=== PATIENT | female | born 1950 | race Caucasian/White ===

== ENCOUNTER 2016-11-05 12:04 | Emergency (ER) | payer BC ==
--- NOTE | 2016-11-05 12:12 | ER Document Report ---
ED Medical Screen (RME) - General Stated Complaint: CAT BITE Notes: She is a 66-year-old female who presents emergency Department complaining of a cat bite that happened on November 02. Patient was evaluated on the at [facility] and started on Rocephin 1 g IM and Keflex. She is in today complaining of pain and swelling that has been worsening since the bite. Bit by her sister's cat who is vaccinated evidence of cellulitis, very tender I have greeted and performed a rapid initial assessment of this patient. A comprehensive ED assessment and evaluation of the patient, analysis of test results and completion of the medical decision making process will be conducted by additional ED providers. TRAVEL OUTSIDE OF THE [place] IN LAST 30 DAYS: No - Related Data Allergies/Adverse Reactions: azithromycin [From Zithromax] Adverse Reaction (Verified 11/05/16 12:08) levofloxacin [From Levaquin] Adverse Reaction (Verified 11/05/16 12:07) Past Medical History - Past Medical History Cardiac Medical History: Reports: Hx Hypercholesterolemia, Hx Hypertension Endocrine Medical History: Reports: Hx Diabetes Mellitus Type 2 Psychiatric Medical History: Reports: Hx Depression - put on celexa for mother' s , weaning off now Past Surgical History: Reports: Hx Cardiac Surgery - PACEMAKER, Hx Orthopedic Surgery - KNEE - Immunizations Hx Diphtheria, Pertussis, Tetanus Vaccination: Yes Physical Exam - Vital signs Vitals: Temp Pulse Resp BP Pulse Ox 97.9 F 74 18 160/84 H 97 11/05/16 12:07 11/05/16 12:07 11/05/16 12:07 11/05/16 12:07 11/05/16 12:07 Course - Vital Signs Vital signs: Temp Pulse Resp BP Pulse Ox 97.9 F 74 18 160/84 H 97 11/05/16 12:07 11/05/16 12:07 11/05/16 12:07 11/05/16 12:07 11/05/16 12:07
--- NOTE | 2016-11-05 12:33 | ER Document Report ---
ED Animal Bite - General Chief Complaint: Cat Bite Stated Complaint: CAT BITE Mode of Arrival: Ambulatory Information source: Patient TRAVEL OUTSIDE OF THE [place] IN LAST 30 DAYS: No - HPI Location of injury: RUE Severity of injury: Bitten Onset: Other - 3 DAYS AGO Where did incident occur: PATIENT'S HOME Quality of pain: Burning, Pressure Severity: Mild Context of attack: "Provoked" attack Summary of what happened: DOMESTICATED INDOOR CAT, HEALTHY, BIT PATIENT WHILE PLAYING Type of animal: Cat Appearance of animal: Appeared well Animal's immunizations: UTD Animal captured or known: Yes Notes: INITIALLY SEEN ON DATE OF INCIDENT BY [facility]. GIVE ROCEPHIN & PRESCRIBED KEFLEX. OVERNIGHT WOUND BECAME MORE SWOLLEN & PAINFUL AND DRAINED PURULENCE THIS A.M. - Related Data Allergies/Adverse Reactions: azithromycin [From Zithromax] Adverse Reaction (Verified 11/05/16 12:08) levofloxacin [From Levaquin] Adverse Reaction (Verified 11/05/16 12:07) Past Medical History - General Information source: Patient - Social History Smoking Status: Current Every Day Smoker Chew tobacco use (# tins/day): No Frequency of alcohol use: None Drug Abuse: None Lives with: Spouse/Significant other Family History: Reviewed & Not Pertinent Patient has suicidal ideation: No Patient has homicidal ideation: No - Past Medical History Cardiac Medical History: Reports: Hx Hypercholesterolemia, Hx Hypertension Pulmonary Medical History: Reports: None Neurological Medical History: Reports: None Endocrine Medical History: Reports: Hx Diabetes Mellitus Type 2 Renal/ Medical History: Reports: None. Denies: Hx Peritoneal Dialysis Malignancy Medical History: Reports: None GI Medical History: Reports: None Musculoskeltal Medical History: Reports None Psychiatric Medical History: Reports: Hx Depression - put on celexa for mother' s , weaning off now Past Surgical History: Reports: Hx Cardiac Surgery - PACEMAKER, Hx Orthopedic Surgery - KNEE - Immunizations Hx Diphtheria, Pertussis, Tetanus Vaccination: Yes Review of Systems - Review of Systems Constitutional: No symptoms reported EENT: No symptoms reported Cardiovascular: No symptoms reported Respiratory: No symptoms reported Gastrointestinal: No symptoms reported Female Genitourinary: Post menopausal Musculoskeletal: No symptoms reported Skin: See HPI Neurological/Psychological: No symptoms reported Physical Exam - Vital signs Vitals: Temp Pulse Resp BP Pulse Ox 97.9 F 74 18 160/84 H 97 11/05/16 12:07 11/05/16 12:07 11/05/16 12:07 11/05/16 12:07 11/05/16 12:07 Interpretation: Hypertensive. No: Tachycardic, Tachypneic, Febrile - General General appearance: Appears well, Alert In distress: None - HEENT Head: Normocephalic Eyes: Normal Conjunctiva: Normal Ears: Normal Nasal: Normal Mouth/Lips: Normal Mucous membranes: Normal - Respiratory Respiratory status: No respiratory distress - Cardiovascular Rhythm: Regular - Abdominal Inspection: Normal Distension: No distension - Back Back: Normal - Extremities General upper extremity: No: Normal inspection - R. FOREARM (SEE BELOW) Forearm: Other - 2 PUNCTURE WOUNDS OVER EXTENSOR MUSCLE MASS, WITH SURROUNDING EDEMA, WARMTH, TENDERNESS. WOUNDS SEALED W/ DRY ESCHAR. - Neurological Neuro grossly intact: Yes Cognition: Normal Orientation: AAOx4 - Psychological Associated symptoms: Normal affect, Normal mood - Skin Skin Temperature: Warm Skin Moisture: Dry Skin Color: Normal Skin Turgor: Elastic Skin irregularity: other - SEE ABOVE. Course - Vital Signs Vital signs: Temp Pulse Resp BP Pulse Ox 97.9 F 74 18 160/84 H 97 11/05/16 12:07 11/05/16 12:07 11/05/16 12:07 11/05/16 12:07 11/05/16 12:07 Procedures - Incision and Drainage Right Arm Time completed: 13:55 Type: Simple Anesthetic type: 2% Lidocaine mL's of anesthetic: 2 Blade size: 11 I&D procedure: Betadine prep applied, Iodoform packing placed Incision Method: Incision made by scalpel Amount/type of drainage: 1 cc BLOODY PURULENT Notes: 11/05/16 14:00 BOTH PUNCTURE WOUNDS I&D'd, IRRIGATED & PACKED LOOSELY. WOUNDS SPREAD & PROBED BLUNTLY TO BREAK UP LOCULATIONS. Discharge - Discharge Clinical Impression: Infected cat bite of forearm Qualifiers: Encounter type: initial encounter Laterality: right Qualified Code(s): S51.851A - Open bite of right forearm, initial encounter; L08.9 - Local infection of the skin and subcutaneous tissue, unspecified; W55.01XA - Bitten by cat, initial encounter Diabetes Qualifiers: Diabetes mellitus type: type 2 Diabetes mellitus complication status: without complication Diabetes mellitus jail insulin use: without oysterman use Qualified Code(s): E11.9 - Type 2 diabetes mellitus without complications Condition: Stable Disposition: HOME, SELF-CARE Instructions: Wound Infection ([facility]), Post Incision and Drainage, Elevation & Warmth ([facility]), IV Antibiotics ([facility]), Augmentin ([facility]), Epsom Salt Soaks ([facility]) Additional Instructions: MEDS DIRECTED. KEEP ARM ELEVATED MUCH POSSIBLE. TOMORROW, REMOVE BANDAGE AND PACKING AND BEGIN SOAKING WOUNDS IN WARM SALT WATER 3 OR 4 TIMES A DAY. AFTER SOAKING FOR 20 MINUTES, DRY WOUNDS GENTLY AND REPLACE BANDAGE WITH A NEW ONE. CONTINUE THIS UNTIL WOUNDS ARE HEALED. RETURN TO E.R. OR FOLLOW UP WITH YOUR PRIMARY CARE PROVIDER IF PROBLEMS. Prescriptions: Amox Tr/Potassium Clavulanate [Augmentin 500-125 Tablet] 1 tab PO Q8 #30 tablet
[2016-11-05] MEDS ORDERED: ONDANSETRON 4 MG TAB.RAPDIS PO ONE (12:43)
[2016-11-05] MEDS ORDERED: AMPICILLIN SOD/SULBACTAM 3 GM VIAL IV ONE (12:43)
[2016-11-05] MEDS ORDERED: LIDOCAINE 2% INJ (20 MG/ML) 20 ML MDV INJ ONE (12:43)
[2016-11-05] MEDS ORDERED: HYDROMORPHONE HCL INJ/PF 2 MG/ML AMPULE IV ONE (12:43)
[2016-11-05 15:38] VITALS: BP 136/78
== END 2016-11-05 15:30 | disposition home or self-care (01) ==
LOC: ER 12:04
PROC: 0H9DXZZ Drainage of Right Lower Arm Skin, External Approach (ICD-10-PCS; principal; 2016-11-05)
DX: S51.851A Open bite of right forearm, initial encounter (principal); E11.9 Type 2 diabetes mellitus without complications; W55.01XA Bitten by cat, initial encounter
CPT/HCPCS: 99283; 96375; 96365; 87070; 87205; 87075; 10060; J3490; S0119; J0295; J1170; 87077; A6266

== ENCOUNTER → 2016-12-01 | Outpatient (CLI) | payer BC ==
--- NOTE | 2016-12-05 11:12 | CAROTID DOPPLER PRO FEE REPORT ---
CAROTID DUPLEX DOPPLER REPORT [id number] ROOM#: DATE OF STUDY: 12/01/2016 DATE OF : 1950 REFERRING MD: DOMINIQUE PAEZ M.D. ORDER NO: [id number] TECHNOLOGIST: Norris Reyes INDICATION: TIA; occipital neuralgia. STUDY: The color carotid duplex scan was performed with real time images and real time Doppler velocity measurements. Real time images indicated moderate bilateral heterogenous plaque formation, worse to the right than the left. Doppler velocity measurements were as follows: MEASUREMENT: RIGHT LEFT CCA PSV (prox/mid) 89 cm/sec 101 cm/sec CCA PSV (distal) 97 cm/sec 85 cm/sec CCA EDV (prox/mid) 26 cm/sec 27 cm/sec CCA EDV (distal) 28 cm/sec 29 cm/sec ICA PSV (proximal) 129 cm/sec 108 cm/sec ICA PSV (distal) 115 cm/sec 159 cm/sec ICA EDV (proximal) 47 cm/sec 32 cm/sec ICA EDV (distal) 44 cm/sec 52 cm/sec ECA 131 cm/sec 112 cm/sec ICA/CCA RATIO: 1.3 on the right and 1.9 on the left. Vertebrals are patent. Flow is cephalad. FINAL IMPRESSION: MODERATE BILATERAL PLAQUE FORMATION, LESS THAN 50% STENOTIC FLOW. INTERPRETING PHYSICIAN: DOMINIQUE PAEZ M.D. /: BRAULIO TT: 1103 ID: [id number] /: [id number] TD: [id number] JOB: [id number] cc:DOMINIQUE PAEZ M.D. >
== END ==
LOC: SP 09:45
PROVIDERS: ATTEND Specialist
DX: R56.9 Unspecified convulsions (principal); G45.9 Transient cerebral ischemic attack, unspecified; M54.81 Occipital neuralgia
CPT/HCPCS: 93880

== ENCOUNTER 2017-03-16 19:17 | Emergency (ER) | payer MEDICARE, BC ==
[2017-03-16] MEDS ORDERED: ONDANSETRON 4 MG TAB.RAPDIS PO ONE (19:57)
--- NOTE | 2017-03-16 19:58 | ER Document Report ---
ED Medical Screen (RME) - General Chief Complaint: Nausea/Vomiting Stated Complaint: VOMITING Time Seen by Provider: 03/16/17 19:57 Notes: Patient states she was in her normal state of health until approximately 3 PM yesterday when suddenly she became nauseous and has had intractable vomiting since then. She states she has some abdominal generalized discomfort but no focal pain. She states urine and bowel movements have been normal. She states she has had no surgeries on her belly since she was 18 years old when she had an appendectomy. TRAVEL OUTSIDE OF THE [place] IN LAST 30 DAYS: No - Related Data Allergies/Adverse Reactions: azithromycin [From Zithromax] Adverse Reaction (Verified 11/05/16 12:08) levofloxacin [From Levaquin] Adverse Reaction (Verified 11/05/16 12:07) Past Medical History - Social History Chew tobacco use (# tins/day): No Frequency of alcohol use: None Drug Abuse: None - Past Medical History Cardiac Medical History: Reports: Hx Hypercholesterolemia, Hx Hypertension Endocrine Medical History: Reports: Hx Diabetes Mellitus Type 2 Renal/ Medical History: Denies: Hx Peritoneal Dialysis GI Medical History: Reports: Hx Gastroesophageal Reflux Disease Psychiatric Medical History: Reports: Hx Depression - put on celexa for mother' s , weaning off now Past Surgical History: Reports: Hx Appendectomy, Hx Cardiac Surgery - PACEMAKER , Hx Orthopedic Surgery - KNEE - Immunizations Hx Diphtheria, Pertussis, Tetanus Vaccination: Yes Physical Exam - Vital signs Vitals: Temp Pulse Resp BP Pulse Ox 98.8 F 82 18 137/87 H 96 03/16/17 19:42 03/16/17 19:42 03/16/17 19:42 03/16/17 19:42 03/16/17 19:42 Course - Vital Signs Vital signs: Temp Pulse Resp BP Pulse Ox 98.8 F 82 18 137/87 H 96 03/16/17 19:42 03/16/17 19:42 03/16/17 19:42 03/16/17 19:42 03/16/17 19:42
[2017-03-16 20:20] LABS: ABSOLUTE BASOPHILS # (AUTO) 0.1 10^3/uL (0.0-0.2); ABSOLUTE EOSINOPHILS # (AUTO) 0.1 10^3/uL (0.0-0.6); ABSOLUTE LYMPHOCYTES (AUTO) 2.5 10^3/uL (0.5-4.7); ABSOLUTE MONOCYTES (AUTO) 0.9 10^3/uL (0.1-1.4); ABSOLUTE NEUT (AUTO) 7.1 10^3/uL (1.7-8.2); BASOPHILS % (AUTO) 0.9 % (0-2); HEMATOCRIT 48.4 % (36.0-47.0); HEMOGLOBIN 16.2 g/dL (12.0-15.5); HGB HCT DIFFERENCE 0.2; LYMPHOCYTES % (AUTO) 23.4 % (13-45); MEAN CORPUSCULAR HEMOGLOBIN 32.2 pg (27.0-33.4); MEAN CORPUSCULAR HGB CONC 33.5 g/dL (32.0-36.0); MEAN CORPUSCULAR VOLUME 96 fl (80-97); MONOCYTES % (AUTO) 8.5 % (3-13); RED BLOOD COUNT 5.03 10^6/uL (3.72-5.28); RED CELL DISTRIBUTION WIDTH 14.1 % (11.5-14.0); SEGMENTED NEUTROPHILS % (AUTO) 66.2 % (42-78); WHITE BLOOD COUNT 10.7 10^3/uL (4.0-10.5)
[2017-03-16 20:27] LABS: AMORPHOUS SEDIMENT,URINE TRACE /HPF; APPEARANCE,URINE CLOUDY; BILIRUBIN,URINE NEGATIVE (NEGATIVE); GLUCOSE, URINE NEGATIVE (NEGATIVE); KETONES,URINE NEGATIVE (NEGATIVE); LEUKOCYTE ESTERASE,URINE TRACE (NEGATIVE); NITRITE,URINE NEGATIVE (NEGATIVE); PROTEIN,URINE 100 mg/dL (NEGATIVE); URINE SPECIFIC GRAVITY 1.021; UROBILINOGEN,URINE NEGATIVE mg/dL (<2.0)
[2017-03-16 20:37] LABS: ALANINE AMINOTRANSFERASE 39 U/L (9-52); ALBUMIN 4.8 g/dL (3.5-5.0); ALKALINE PHOSPHATASE 86 U/L (38-126); ANION GAP 12 (5-19); ASPARTATE AMINO TRANSFERASE 21 U/L (14-36); BILIRUBIN,DIRECT 0.3 mg/dL (0.0-0.4); BLOOD UREA NITROGEN 18 mg/dL (7-20); CALCIUM 9.7 mg/dL (8.4-10.2); CARBON DIOXIDE 33 mmol/L (22-30); CHLORIDE 97 mmol/L (98-107); CREATININE RESULT 0.72 mg/dL (0.52-1.25); GLUCOSE 215 mg/dL (75-110); LIPASE 239.1 U/L (23-300); POTASSIUM 3.6 mmol/L (3.6-5.0); SODIUM 142.1 mmol/L (137-145)
[2017-03-16] MEDS ORDERED: ONDANSETRON HCL INJ/PF 4 MG/2 ML SDV IV ONE (21:24)
[2017-03-16] MEDS ORDERED: NORMAL SALINE 1000 ML 1,000 ML IV PRN (21:24)
--- NOTE | 2017-03-16 21:36 | ER Document Report ---
ED GI/ - General Chief Complaint: Nausea/Vomiting Stated Complaint: VOMITING Time Seen by Provider: 03/16/17 19:57 Mode of Arrival: Ambulatory Information source: Patient Notes: 67-year-old female presents to ED for nausea and vomiting since yesterday afternoon around 3 PM. She states she has vomited too many times to count. She states now her stomach is a little sore from all the vomiting. Denies any acute abdominal pain except for the soreness. States she is urinating and having bowel movements normally. States only surgery she has had on her abdomen was an appendectomy when she was about 18 years old. TRAVEL OUTSIDE OF THE [place] IN LAST 30 DAYS: No - HPI Patient complains to provider of: Abdominal pain - Soreness from vomiting, Vomiting Onset: Yesterday Timing/Duration: Intermittent Quality of pain: Other - Soreness from vomiting Severity at maximum: Moderate Severity in ED: Moderate Pain Level: 2 Location: Other - Generalized abdominal soreness from vomiting Vaginal bleeding (Compared to normal period): None Menstrual period history: Post-menopausal Associated symptoms: Nausea, Vomiting Exacerbated by: Denies Relieved by: Denies Similar symptoms previously: Yes Recently seen / treated by doctor: No - Related Data Allergies/Adverse Reactions: azithromycin [From Zithromax] Adverse Reaction (Verified 11/05/16 12:08) levofloxacin [From Levaquin] Adverse Reaction (Verified 11/05/16 12:07) Past Medical History - General Information source: Patient - Social History Smoking Status: Current Every Day Smoker Chew tobacco use (# tins/day): No Frequency of alcohol use: None Drug Abuse: None Lives with: Family Family History: Reviewed & Not Pertinent Patient has suicidal ideation: No Patient has homicidal ideation: No - Past Medical History Cardiac Medical History: Reports: Hx Hypercholesterolemia, Other - long qt Pulmonary Medical History: Reports: Hx Pneumonia EENT Medical History: Reports: None Endocrine Medical History: Reports: Hx Diabetes Mellitus Type 2 Renal/ Medical History: Reports: None GI Medical History: Reports: Hx Gastroesophageal Reflux Disease, Hx Colonoscopy Musculoskeltal Medical History: Reports Hx Musculoskeletal Trauma Skin Medical History: Reports None Psychiatric Medical History: Reports: Hx Depression - put on celexa for mother' s , weaning off now Traumatic Medical History: Reports: None Infectious Medical History: Reports: None Past Surgical History: Reports: Hx Appendectomy, Hx Cardiac Surgery - PACEMAKER , Hx Oral Surgery - wisdom teeth, Hx Orthopedic Surgery - KNEE - Immunizations Immunizations up to date: Yes Hx Diphtheria, Pertussis, Tetanus Vaccination: Yes Hx Pneumococcal Vaccination: 10/19/14 Review of Systems - Review of Systems Constitutional: No symptoms reported EENT: No symptoms reported Cardiovascular: No symptoms reported Respiratory: No symptoms reported Gastrointestinal: Nausea, Vomiting Genitourinary: No symptoms reported Female Genitourinary: No symptoms reported Musculoskeletal: No symptoms reported Skin: No symptoms reported Hematologic/Lymphatic: No symptoms reported Neurological/Psychological: No symptoms reported -: Yes All other systems reviewed and negative Physical Exam - Vital signs Vitals: Temp Pulse Resp BP Pulse Ox 98.8 F 82 18 137/87 H 96 03/16/17 19:42 03/16/17 19:42 03/16/17 19:42 03/16/17 19:42 03/16/17 19:42 Interpretation: Normal - General General appearance: Appears well, Alert - HEENT Head: Normocephalic, Atraumatic Eyes: Normal Pupils: PERRL - Respiratory Respiratory status: No respiratory distress Chest status: Nontender Breath sounds: Normal Chest palpation: Normal - Cardiovascular Rhythm: Regular Heart sounds: Normal auscultation Murmur: No - Abdominal Inspection: Normal Distension: No distension Bowel sounds: Normal Tenderness: Nontender Organomegaly: No organomegaly - Back Back: Normal, Nontender - Extremities General upper extremity: Normal inspection, Nontender, Normal color, Normal ROM , Normal temperature General lower extremity: Normal inspection, Nontender, Normal color, Normal ROM , Normal temperature, Normal weight bearing. No: Miguelangel's sign - Neurological Neuro grossly intact: Yes Cognition: Normal Orientation: AAOx4 [place] Coma Scale Eye Opening: Spontaneous [place] Coma Scale Verbal: Oriented [place] Coma Scale Motor: Obeys Commands [place] Coma Scale Total: 15 Speech: Normal Motor strength normal: LUE, RUE, LLE, RLE Sensory: Normal - Psychological Associated symptoms: Normal affect, Normal mood - Skin Skin Temperature: Warm Skin Moisture: Dry Skin Color: Normal Course - Re-evaluation Re-evalutation: 03/17/17 05:49 Patient was treated with IV fluids and Zofran. She then stated that she was having pain as if hungry but was no longer nauseated. Patient was given chely crackers saltine crackers and juice. She states she felt much better and was ready to go home. Patient was discharged home with prescription for Zofran. - Vital Signs Vital signs: Temp Pulse Resp BP Pulse Ox 98.2 F 76 18 128/77 H 98 03/17/17 01:02 03/17/17 01:02 03/17/17 01:02 03/17/17 01:02 03/17/17 01:02 - Laboratory Result Diagrams: 03/16/17 20:03 03/16/17 20:03 Laboratory results interpreted by me: 03/16/17 03/16/17 03/16/17 20:03 20:03 20:03 WBC 10.7 H Hgb 16.2 H Hct 48.4 H RDW 14.1 H Chloride 97 L Carbon Dioxide 33 H Glucose 215 H Urine Protein 100 H Ur Leukocyte Esterase TRACE H Discharge - Discharge Clinical Impression: Nausea & vomiting Qualifiers: Vomiting type: unspecified Vomiting Intractability: non-intractable Qualified Code(s): R11.2 - Nausea with vomiting, unspecified Condition: Stable Disposition: HOME, SELF-CARE Instructions: Family Physicians / Practices Additional Instructions: VOMITING: Vomiting (or nausea without vomiting) can be caused by many other different problems. It can mean that something's wrong with the stomach, such as ulcers or inflammation or the intestinal tract, such as appendicitis. But it can also be a symptom of a problem that has nothing to do with the stomach or intestines. Vomiting is common with severe headaches, earaches, tonsillitis, and kidney infections, etc. We see it with pneumonia or heart attacks. Drugs can cause nausea and vomiting. Many abdominal problems cause vomiting; for example, gallstones, kidney stones, pancreatitis, and intestinal obstruction ( blocked bowels). In most cases, curing the vomiting depends on fixing the problem that caused it. For temporary relief, we may use an anti-nausea medicine. For home use, we can prescribe suppositories, chewable pills, pills that dissolve in the mouth, or liquid anti-nausea drugs. If the vomiting seems to be caused by a problem in the stomach, acid-suppressing drugs may be prescribed as well. It's important to avoid dehydration. Sip small amounts of clear liquids ( soft drinks, tea, broth, etc) . Try to take fluids frequently even if you are vomiting to prevent dehydration. Take increasing amounts of fluid and when liquids are being consumed successfully, advance to small amounts of bland food (toast, soups, mashed potatoes, etc.) until you are able to resume a regular diet. Avoid aspirin, tobacco, and alcohol. If the vomiting worsens, if the problem that's making you vomit worsens, or if there's evidence of bleeding in the stomach (such as black, tarry stool, or bloody or black vomit), you should return immediately. Also, return if abdominal pain worsens or becomes localized to one area or you develop high fever. Call your doctor if you aren't improved in 24 hours. VIRAL SYNDROME: The physician has diagnosed a viral infection. Viruses not only cause "colds," but can cause many different symptoms including generalized aching, fever, headache, cough, diarrhea, nausea, vomiting, and fatigue. The treatment, for the most part, is simply relief of symptoms. This means that antibiotics are usually not given. Rest, fluids, pain medications and, occasionally, medication for the specific symptoms that are most bothersome will be prescribed. Use good handwashing to avoid passing the virus to others. Shared toys should be cleaned with disinfectant. Clean the toilets, sinks, and counter surfaces in bathrooms. Launder clothing in hot water. Contact the physician if you develop any new or unusual symptoms such as severe headache, stiff neck, high fever, chest pain, productive cough, or shortness of breath. You should be rechecked if you don't see marked improvement within seven to 10 days. INTRAVENOUS (I V) FLUIDS: As part of your care today, you received intravenous (IV) fluids. IV fluids are administered to patients who are dehydrated or to those who have certain chemical (electrolyte) abnormalities that need correcting. ANTINAUSEA MEDICATION: You have been given a medication to suppress nausea and vomiting. This type of medication can be given as a shot, pill, or suppository. It will usually last for many hours. Pills and shots usually last six to eight hours. For the typical illness, only one or two doses of the medication may be necessary. Mild lightheadedness may occur. This type of medicine can cause drowsiness. Do not drive or operate dangerous machinery while under its influence. Do not mix with alcohol. See your doctor at once if you have muscle spasms or tightness, or uncontrollable motions (particularly of the neck, mouth, or jaw). Persistent vomiting or severe lightheadedness should also be evaluated by the physician. FOLLOW-UP CARE: If you have been referred to a physician for follow-up care, call the physician s office for an appointment as you were instructed or within the next two days. If you experience worsening or a significant change in your symptoms, notify the physician immediately or return to the Emergency Department at any time for re-evaluation. Prescriptions: Ondansetron [Zofran Odt 4 mg Tablet] 1 tab PO Q6H #15 tab.rapdis Forms: Elevated Blood Pressure
[2017-03-16] MEDS ORDERED: PROMETHAZINE HCL 25 MG TABLET PO ONE (23:09)
[2017-03-17 01:03] VITALS: BP 128/77
== END 2017-03-17 01:02 | disposition home or self-care (01) ==
LOC: ER 19:17
DX: R11.2 Nausea with vomiting, unspecified (principal); R10.84 Generalized abdominal pain; F17.200 Nicotine dependence, unspecified, uncomplicated
CPT/HCPCS: 99283; 96361; 96374; 36415; 83690; 85025; 80053; 81001; A9270 ×2; J2405; J7030; S0119

== ENCOUNTER 2018-04-11 15:09 | Emergency (ER) | payer MEDICARE, BC ==
--- NOTE | 2018-04-11 16:11 | ER Document Report ---
ED Medical Screen (RME) - General Chief Complaint: Skin Sore(s) Stated Complaint: HAND WOUND Time Seen by Provider: 04/11/18 15:55 Mode of Arrival: Ambulatory Information source: Patient Notes: 68-year-old female with a history of diabetes who presents to the emergency room with painful lesion on the right hand for the past month. She denies fever , chills, nausea vomiting. She is not sure whether she had gotten this either in the yard gardening or by 1 of her cats. In any event she denies any erythematous streaks or fever. TRAVEL OUTSIDE OF THE [place] IN LAST 30 DAYS: No - HPI Onset: Other - For 1 month Onset/Duration: Gradual Quality of pain: Dull Severity: Moderate Pain Level: 3 - Tenderness to touch Associated Symptoms: denies: Chest pain, Shortness of breath Exacerbated by: Other - Hand hurts when palpating the area Relieved by: Denies Similar symptoms previously: Yes Recently seen / treated by doctor: Yes - Related Data Smoking: Cigarettes Frequency of alcohol use: None Drug Abuse: None Allergies/Adverse Reactions: azithromycin [From Zithromax] Adverse Reaction (Verified 04/11/18 15:09) levofloxacin [From Levaquin] Adverse Reaction (Verified 04/11/18 15:09) Past Medical History - General Information source: Patient - Social History Cigarette use (# per day): Yes - Half a pack per day Chew tobacco use (# tins/day): No Frequency of alcohol use: None Drug Abuse: None Lives with: Family Family history: None - Past Medical History Cardiac Medical History: Reports: Hx Hypercholesterolemia, Hx Hypertension Pulmonary Medical History: Reports: Hx Pneumonia Endocrine Medical History: Reports: Hx Diabetes Mellitus Type 2 Renal/ Medical History: Denies: Hx Peritoneal Dialysis GI Medical History: Reports: Hx Gastroesophageal Reflux Disease, Hx Colonoscopy Musculoskeltal Medical History: Reports Hx Musculoskeletal Trauma Psychiatric Medical History: Reports: Hx Depression - put on celexa for mother' s , weaning off now Past Surgical History: Reports: Hx Appendectomy, Hx Cardiac Surgery - PACEMAKER , Hx Oral Surgery - wisdom teeth, Hx Orthopedic Surgery - KNEE - Immunizations Immunizations up to date: Yes Hx Diphtheria, Pertussis, Tetanus Vaccination: Yes Review of Systems - Review of Systems Constitutional: denies: Chills, Fever EENT: No symptoms reported Cardiovascular: denies: Chest pain, Palpitations, Heart racing, Syncope Respiratory: denies: Cough, Short of breath Gastrointestinal: No symptoms reported Genitourinary: No symptoms reported Musculoskeletal: See HPI Skin: See HPI Physical Exam - Vital signs Vitals: Temp Pulse Resp BP Pulse Ox 98.2 F 74 18 121/70 94 04/11/18 15:18 04/11/18 15:18 04/11/18 15:18 04/11/18 15:18 04/11/18 15:18 Notes: Physical exam: GENERAL: 38-year-old female, alert and oriented 3, no acute distress HEAD: Atraumatic, normocephalic. EYES: Pupils equal round and reactive to light, extraocular movements intact, sclera anicteric, conjunctiva are normal. ENT: Moist mucous membranes. NECK: Normal range of motion, supple without obvious mass EXTREMITIES: Right hand: Patient does have a healing scab in between the thumb and the right index finger dorsally. Area is tender. There is no obvious foreign body. There is no obvious erythema or warmth or swelling suggestive of infection. There is no lymphangitic streaks. Her distal radial pulses good her sensation is good. She does have multiple healing abrasions to both dorsal forearms. None of which appear infected. Her skin does appear thin on the dorsal aspect of the forearms. NEUROLOGICAL: Cranial nerves II through XII grossly intact. Normal speech, moving all extremities. PSYCH: Normal mood, normal affect. SKIN: See above on extremities. 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 I cannot feel a foreign body and do not see one on x-ray. There is no overlying erythema, pus or evidence of infection at this time. I have had a discussion with her and her and the plan will be to follow-up with the hand surgeon and I have given them the number for Dr. samaniego's office. 04/11/18 19:56 - Vital Signs Vital signs: Temp Pulse Resp BP Pulse Ox 98.2 F 80 16 120/72 95 04/11/18 18:03 04/11/18 18:03 04/11/18 18:03 04/11/18 18:03 04/11/18 18:03 - Laboratory Result Diagrams: 04/11/18 16:15 04/11/18 16:15 Laboratory results interpreted by me: 04/11/18 04/11/18 16:15 16:15 Hgb 15.6 H Glucose 149 H - Diagnostic Test Radiology reviewed: Image reviewed, Reports reviewed - X-ray shows no obvious foreign body Doctor's Discharge - Discharge Clinical Impression: Right hand wound Condition: Stable Disposition: HOME, SELF-CARE Additional Instructions: As discussed, the x-rays did not show a foreign body. X-rays cannot see every foreign body, so follow-up with the hand surgeon is important. Continue other medicines. In the meantime, return to the emergency room if there is increased swelling, redness, pus drainage, if you develop fever, or any concerns you may be having infection. Referrals: JONAS VALLEJO PA-C [Primary Care Provider] - Follow up as needed SOM SAMANIEGO DO [ACTIVE STAFF] - Follow up as needed (This is the number for the hand surgeon: Call the clinic tomorrow and tell the office coordinator receptionist that you were in the emergency room for possible foreign body in the hand and the ER doctor would like you followed up in the next few days with Dr. Samaniego (hand surgeon).)
[2018-04-11 16:33] LABS: ABSOLUTE EOSINOPHILS # (AUTO) 0.2 10^3/uL (0.0-0.6); ABSOLUTE LYMPHOCYTES (AUTO) 3.4 10^3/uL (0.5-4.7); ABSOLUTE MONOCYTES (AUTO) 0.6 10^3/uL (0.1-1.4); ABSOLUTE NEUT (AUTO) 4.5 10^3/uL (1.7-8.2); BASOPHILS % (AUTO) 0.4 % (0-2); EOSINOPHILS % (AUTO) 2.6 % (0-6); HEMATOCRIT 45.5 % (36.0-47.0); HEMOGLOBIN 15.6 g/dL (12.0-15.5); LYMPHOCYTES % (AUTO) 38.5 % (13-45); MEAN CORPUSCULAR HEMOGLOBIN 32.5 pg (27.0-33.4); MEAN CORPUSCULAR HGB CONC 34.4 g/dL (32.0-36.0); MEAN CORPUSCULAR VOLUME 95 fl (80-97); MONOCYTES % (AUTO) 7.2 % (3-13); PLATELET COUNT 162 10^3/uL (150-450); RED BLOOD COUNT 4.81 10^6/uL (3.72-5.28); RED CELL DISTRIBUTION WIDTH 13.8 % (11.5-14.0); SEGMENTED NEUTROPHILS % (AUTO) 51.3 % (42-78); TOTAL CELLS COUNTED % (AUTO) 100 %; WHITE BLOOD COUNT 8.7 10^3/uL (4.0-10.5)
--- NOTE | 2018-04-11 16:41 | RADIOLOGY REPORT (SQ) ---
EXAM DESCRIPTION: HAND RIGHT 3 VIEWS COMPLETED DATE/TIME: 04/11/2018 4:27 pm REASON FOR STUDY: right hand lesion dorsal to thenar COMPARISON: None. EXAM PARAMETERS: NUMBER OF VIEWS: Three views. TECHNIQUE: AP, lateral and oblique radiographic images acquired of the right hand. LIMITATIONS: None. FINDINGS: MINERALIZATION: Normal. BONES: No acute fracture or dislocation. No worrisome bone lesions. JOINTS: No effusions. SOFT TISSUES: No foreign body. OTHER: No other significant finding. IMPRESSION: No evidence of fracture or foreign body. TECHNICAL DOCUMENTATION: JOB ID: [id number] [employer]- All Rights Reserved Reading location - IP/workstation name: [email or web address]
[2018-04-11 16:52] LABS: ANION GAP 12 (5-19); BLOOD UREA NITROGEN 17 mg/dL (7-20); CALCIUM 9.6 mg/dL (8.4-10.2); CARBON DIOXIDE 28 mmol/L (22-30); CHLORIDE 103 mmol/L (98-107); GLUCOSE 149 mg/dL (75-110); POTASSIUM 4.2 mmol/L (3.6-5.0); SODIUM 143.3 mmol/L (137-145)
[2018-04-11 18:03] VITALS: BP 120/72
== END 2018-04-11 18:09 | disposition home or self-care (01) ==
LOC: ER 15:09
DX: L98.9 Disorder of the skin and subcutaneous tissue, unspecified (principal); F17.210 Nicotine dependence, cigarettes, uncomplicated; E78.00 Pure hypercholesterolemia, unspecified; I10 Essential (primary) hypertension; E11.9 Type 2 diabetes mellitus without complications; Z95.0 Presence of cardiac pacemaker; Z88.3 Allergy status to other anti-infective agents
CPT/HCPCS: 36415; 80048; 85025; 99283

== ENCOUNTER 2018-04-18 11:05 | Day surgery (SDC) | payer MEDICARE, BC ==
[~2018-04-18 11:05] MED LIST: CEFAZOLIN 2 GM/D5W RTU 2 GM/50 ML RTUPB IV PRN; LACTATED RINGERS 1000 ML IV PRN; LIDOCAINE 0.5% INJ-PF (5 MG/ML) 50 ML SDV SUBCUT PRN
[2018-04-18] MEDS ORDERED: BACITRACIN INJ 50,000 UNIT VIAL ONE (11:08)
[2018-04-18] MEDS ORDERED: MIDAZOLAM 2 MG/2 ML INJ ONE (13:03)
[2018-04-18] MEDS ORDERED: PROPOFOL INJ 200 MG/20 ML VIAL IV ONE (13:04)
[2018-04-18] MEDS ORDERED: FENTANYL CITRATE INJ/PF 100 MCG/2 ML AMPUL ONE (13:04)
[2018-04-18] MEDS ORDERED: LIDOCAINE 1% INJ-PF (10 MG/ML) 30 ML SDV ONE (13:11)
[2018-04-18] MEDS ORDERED: BUPIVACAINE HCL 0.5 % INJ/PF 30 ML SDV ONE (13:11)
[2018-04-18 13:17] LABS: APPEARANCE,URINE SLIGHTLY-CLOUDY; BILIRUBIN,URINE NEGATIVE (NEGATIVE); COLOR,URINE YELLOW; GLUCOSE, URINE NEGATIVE (NEGATIVE); KETONES,URINE NEGATIVE (NEGATIVE); LEUKOCYTE ESTERASE,URINE NEGATIVE (NEGATIVE); NITRITE,URINE NEGATIVE (NEGATIVE); PROTEIN,URINE NEGATIVE (NEGATIVE); URINE SPECIFIC GRAVITY 1.016
[2018-04-18] MEDS ORDERED: FENTANYL CITRATE INJ/PF 100 MCG/2 ML AMPUL IV PRN ×3 (13:34)
[2018-04-18] MEDS ORDERED: DIPHENHYDRAMINE HCL 50 MG/ML VIAL IV PRN (13:34)
[2018-04-18] MEDS ORDERED: MEPERIDINE HCL/PF INJ 25 MG/1 ML DISP.SYRIN IV PRN (13:34)
[2018-04-18] MEDS ORDERED: OXYCODONE-ACETAMINOPHEN 5-325 MG TABLET PO PRN ×2 (13:34)
[2018-04-18] MEDS ORDERED: PROMETHAZINE HCL INJ 25 MG/1 ML VIAL IV PRN ×2 (13:34)
--- NOTE | 2018-04-18 13:46 | Operative Report ---
Operative Report DATE OF SURGERY: 04/18/18 PREOPERATIVE DIAGNOSIS: Right thenar soft tissue mass OPERATION: Resection right thenar soft tissue mass SURGEON: ARELI MARCELO ANESTHESIA: LMAC ESTIMATED BLOOD LOSS: 10 PROCEDURE: The patient supine on the operative table the right upper extremities prepped and draped in sterile fashion. The masses along the webspace between the thenar compartment and the first ray. The skin is infiltrated with a combination of Xylocaine and a cane. Subsequent elliptical incision was made around the mass with a dimension of approximately 1-1/2-2 cm in greatest dimension. The resection is carried down to the underlying subcutaneous fat and muscle fascia. The mass was delivered from the field. The wound is irrigated. Hemostasis obtained with bipolar cautery. The wound was reapproximated with nylon. A sterile compressive dressing was applied. The patient's return to PACU in satisfactory condition.
--- NOTE | 2018-04-18 13:51 | Discharge Summary ---
Discharge Summary (SDC) - Discharge Final Diagnosis: Right thenar mass Date of Surgery: 04/18/18 Discharge Date: 04/18/18 Condition: Good Prescriptions: Oxycodone HCl [Oxy-Ir 5 mg Tablet] 5 mg PO Q6 PRN #40 tablet PRN Reason: Referrals: JONAS VALLEJO PA-C [Primary Care Provider] -
[2018-04-18 15:31] VITALS: BP 146/73
== END 2018-04-18 15:29 | disposition home or self-care (01) ==
LOC: OROUT 11:05
PROVIDERS: ATTEND Orthopaedic Surgery
DX: M79.5 Residual foreign body in soft tissue (principal); R23.4 Changes in skin texture; L57.8 Other skin changes due to chronic exposure to nonionizing radiation; I10 Essential (primary) hypertension; I45.81 Long QT syndrome; E11.9 Type 2 diabetes mellitus without complications; Z79.84 Long term (current) use of oral hypoglycemic drugs; Z79.899 Other long term (current) drug therapy; Z01.810 Encounter for preprocedural cardiovascular examination; Z01.811 Encounter for preprocedural respiratory examination; Z01.812 Encounter for preprocedural laboratory examination; F17.210 Nicotine dependence, cigarettes, uncomplicated; Z95.0 Presence of cardiac pacemaker; Z88.8 Allergy status to other drugs, medicaments and biological substances
CPT/HCPCS: 36415; 82962; 81001; 83036; 88305 ×2; 20520; J2250; J3490 ×2; J3010; J2704; J0690; 400